=== PATIENT | male | born 1950 | race Caucasian/White ===

== ENCOUNTER 2017-09-01 11:25 | Inpatient (IN) | payer MEDICARE, OTHER ==
[~2017-09-01] VITALS: Ht 175.3 cm; Wt 66.7 kg
[2017-09-01] MEDS ORDERED: SODIUM CHLORIDE 0.9% 1,000 ML IV ONE (11:31)
[2017-09-01 12:49] LABS: Basophils # (auto) 0 uL; Basophils % (auto) 0.8 % (0.0-2.0); Eosinophils # (auto) 0.2 uL; Eosinophils % (auto) 4.6 % (0.0-7.0); Hematocrit 38.1 % (41.0-53.0); Hemoglobin 13.3 g/dL (13.5-17.5); Lymphocytes # (auto) 0.9 uL; Lymphocytes % (auto) 19.3 % (10.0-50.0); Mean Corpuscular Hemoglobin 33.9 pg (28.0-32.0); Mean Corpuscular Hgb Conc. 34.8 g/dL (32.0-36.0); Mean Corpuscular Volume 97.3 fL (80.0-100.0); Monocytes # (auto) 0.7 uL; Monocytes % (auto) 15.6 % (0.0-12.0); Neutrophils # (auto) 2.8 uL; Neutrophils % (auto) 59.7 % (37.0-80.0); Nucleated Red Blood Cells % 0.1 %; Platelet Count (auto) 145 10^3/uL (140-450); Red Blood Cells 3.91 10^6/uL (4.5-5.90); Red Cell Distribution Width 12.5 % (11.8-14.3); White Blood Cell 4.7 10^3/uL (4.4-10.8)
[2017-09-01 12:59] LABS: Albumin 3.6 g/dL (3.4-5.0); BUN/Creatinine Ratio 17.8; Bilirubin, Total 0.5 mg/dL (0.2-1.0); Calcium 8.8 mg/dL (8.5-10.1); Potassium 3.9 mmol/L (3.5-5.1); Total Protein 7.9 g/dL (6.4-8.2)
[2017-09-01] MEDS ORDERED: AZITHROMYCIN 500MG/ 250ML 250 ML IV ONE (13:15)
[2017-09-01] MEDS ORDERED: LEVETIRACETAM INJ 500 MG in D5W 5% 100 ML IV ONE (13:15)
[2017-09-01] MEDS ORDERED: cefTRIAXone 1GM/10ml IVPUSH 10 ML IV ONE (13:15)
[2017-09-01 14:27] LABS: Urine Bacteria FEW /hpf (None Seen); Urine Blood Negative /uL (Negative); Urine Specific Gravity 1.014 (1.001-1.035); Urine WBC <1 /hpf (0 - 3)
[2017-09-01] MEDS ORDERED: LORazepam 2MG/ML-1ML VIAL IV PRN (16:00)
[2017-09-01] MEDS ORDERED: cloNIDine HCL 0.1 MG TAB PO PRN (16:00)
[2017-09-01] MEDS ORDERED: MORPHINE SULFATE 10 MG/ML INJ 1ML SDV IV PRN ×2 (16:15)
[2017-09-01] MEDS ORDERED: NITROGLYCERIN 0.4 MG SL TAB SL PRN (16:15)
[2017-09-01] MEDS ORDERED: DOCUSATE SOD 100 MG CAP PO PRN (16:15)
[2017-09-01] MEDS ORDERED: ACETAMINOPHEN 325 MG TAB PO PRN (16:15)
[2017-09-01] MEDS ORDERED: TEMAZEPAM 15 MG CAP PO PRN (16:15)
[2017-09-01] MEDS ORDERED: ONDANSETRON HCL 4 MG/2 ML VIAL IV PRN (16:15)
[2017-09-01] MEDS ORDERED: HYDROcodone-ACET 5/325MG TAB PO PRN (16:15)
[2017-09-01] MEDS ORDERED: LEVE500T22 PO (16:34)
[2017-09-01] MEDS ORDERED: ATOR20TA50 PO (16:34)
[2017-09-01] MEDS ORDERED: RIS1T PO (16:34)
[2017-09-01] MEDS ORDERED: AMLO5TAB2 PO (16:34)
[2017-09-01] MEDS ORDERED: SERT-274 PO (16:34)
[2017-09-01 17:55] VITALS: BP 139/68
[2017-09-01] MEDS: SODIUM CHLOR 0.9% PF (SALINE LOCK) 10ML VIAL IV SCH (21:18)
[2017-09-01] MEDS: LEVETIRACETAM 500 MG TAB PO SCH (21:18)
[2017-09-01] MEDS: FAMOTIDINE 20 MG TAB PO SCH (21:19)
[2017-09-01 21:55] VITALS: BP 112/68
[2017-09-02] VITALS (7 sets, daily range): BP systolic 122–152; BP diastolic 63–82
[2017-09-02] MEDS: risperiDONE 1 MG TAB PO SCH (06:23)
[2017-09-02] MEDS: SODIUM CHLOR 0.9% PF (SALINE LOCK) 10ML VIAL IV SCH ×3 (06:23→21:10)
[2017-09-02 06:58] LABS: Basophils # (auto) 0 uL; Basophils % (auto) 0.7 % (0.0-2.0); Eosinophils # (auto) 0.3 uL; Lymphocytes # (auto) 1.3 uL; Neutrophils # (auto) 2.4 uL; Neutrophils % (auto) 49.8 % (37.0-80.0); Red Cell Distribution Width 12.4 % (11.8-14.3); White Blood Cell 4.9 10^3/uL (4.4-10.8)
[2017-09-02 07:01] LABS: Eosinophils % (auto) 6.4 % (0.0-7.0); Hematocrit 34.6 % (41.0-53.0); Hemoglobin 12.3 g/dL (13.5-17.5); Lymphocytes % (auto) 25.7 % (10.0-50.0); Mean Corpuscular Hemoglobin 34.2 pg (28.0-32.0); Mean Corpuscular Hgb Conc. 35.5 g/dL (32.0-36.0); Mean Corpuscular Volume 96.3 fL (80.0-100.0); Monocytes # (auto) 0.9 uL; Monocytes % (auto) 17.4 % (0.0-12.0); Nucleated Red Blood Cells % 0.2 %; Platelet Count (auto) 147 10^3/uL (140-450); Red Blood Cells 3.59 10^6/uL (4.5-5.90)
[2017-09-02 07:09] LABS: Albumin 3.3 g/dL (3.4-5.0); BUN/Creatinine Ratio 19.8; Bilirubin, Total 0.7 mg/dL (0.2-1.0); Calcium 8.5 mg/dL (8.5-10.1); Potassium 3.2 mmol/L (3.5-5.1); Total Protein 7.2 g/dL (6.4-8.2)
[2017-09-02] MEDS: MULTIPLE VITAMIN TAB PO SCH (10:06)
[2017-09-02] MEDS: FAMOTIDINE 20 MG TAB PO SCH ×2 (10:06→21:10)
[2017-09-02] MEDS: amLODIPine BESYLATE 5 MG TAB PO SCH (10:06)
[2017-09-02] MEDS: LEVETIRACETAM 500 MG TAB PO SCH ×2 (10:07→21:10)
[2017-09-02] MEDS: ENOXAPARIN SOD 40 MG/0.4 ML SYRINGE SC SCH (10:07)
[2017-09-02] MEDS: ATORVASTATIN 20 MG TAB PO SCH (10:07)
[2017-09-02] MEDS: SERTRALINE HCL 50 MG TAB PO SCH (10:07)
[2017-09-02] MEDS: cefTRIAXone 1GM/10ml IVPUSH 10 ML IV SCH (10:08)
[2017-09-02] MEDS: AZITHROMYCIN 500MG/ 250ML 250 ML IV SCH (10:08)
[2017-09-02] MEDS ORDERED: POTASSIUM CHL 10% (20 MEQ/15ML) 15ml ORAL SOLN PO ONE (13:15)
[2017-09-03] MEDS: SODIUM CHLOR 0.9% PF (SALINE LOCK) 10ML VIAL IV SCH (06:11)
[2017-09-03] MEDS: risperiDONE 1 MG TAB PO SCH (06:11)
[2017-09-03 09:00] VITALS: BP 134/68
[2017-09-03] MEDS: LEVETIRACETAM 500 MG TAB PO SCH (10:14)
[2017-09-03] MEDS: AZITHROMYCIN 500MG/ 250ML 250 ML IV SCH (10:14)
[2017-09-03] MEDS: MULTIPLE VITAMIN TAB PO SCH (10:15)
[2017-09-03] MEDS: ATORVASTATIN 20 MG TAB PO SCH (10:15)
[2017-09-03] MEDS: SERTRALINE HCL 50 MG TAB PO SCH (10:16)
[2017-09-03] MEDS: FAMOTIDINE 20 MG TAB PO SCH (10:16)
[2017-09-03] MEDS: amLODIPine BESYLATE 5 MG TAB PO SCH (10:16)
[2017-09-03] MEDS: ENOXAPARIN SOD 40 MG/0.4 ML SYRINGE SC SCH (10:17)
[2017-09-03] MEDS: cefTRIAXone 1GM/10ml IVPUSH 10 ML IV SCH (10:17)
[2017-09-03 11:45] VITALS: BP 134/68
[2017-09-03 11:50] VITALS: BP 134/68
[2017-09-03 12:47] VITALS: BP 128/64
== END 2017-09-03 14:37 | disposition home or self-care (01) | DRG 100 ==
LOC: ER 11:25 → TELE 11:26 → TELE-CENTR 17:26
PROVIDERS: ADMIT Internal Medicine; ATTEND Family Medicine
DX: G40.89 Other seizures (principal); J18.1 Lobar pneumonia, unspecified organism; F03.90 Unspecified dementia, unspecified severity, without behavioral disturbance, psychotic disturbance, mood disturbance, and anxiety; N39.0 Urinary tract infection, site not specified; D63.8 Anemia in other chronic diseases classified elsewhere; E78.00 Pure hypercholesterolemia, unspecified; F32.9 Major depressive disorder, single episode, unspecified; I10 Essential (primary) hypertension; I51.7 Cardiomegaly; N18.2 Chronic kidney disease, stage 2 (mild); Z86.73 Personal history of transient ischemic attack (TIA), and cerebral infarction without residual deficits
CPT/HCPCS: 36415; 70450; 71045; 80053; 81001; 82542; 83605; 84484; 85025; 87040; 87086; 93005; 93306; 96361; 96365; 96367; 96375; J7060